=== PATIENT | female | born 1935 | race Caucasian/White ===

== ENCOUNTER 2018-02-19 06:54 | Day surgery (SDC) | payer MEDICARE ==
[~2018-02-19 06:54] MED LIST: Acetaminophen TAB* 325 MG PO PRN; Buffered Lidocaine 0.9% SYRIN* 5 ML/SYR SYRINGE INTRADERM ONE
[2018-02-19] MEDS ORDERED: Propofol* 10 MG/ML 20 ML BTL IV PUSH ONE (07:41)
[2018-02-19] MEDS ORDERED: fentaNYL* 50 MCG/ML 2 ML VIAL (100 MCG VIAL) ONE (07:41)
[2018-02-19] MEDS ORDERED: Lidocaine 2% PF * 5 ML VIAL ONE (07:41)
[2018-02-19 08:55] VITALS: BP 175/89
--- NOTE | 2018-02-19 09:48 | OP ---
DATE OF OPERATION: 02/19/2018. DATE OF : 1935. SURGEON: Noel Haywood M.D. PREOPERATIVE DIAGNOSIS: Cataract left eye. POSTOPERATIVE DIAGNOSIS: Cataract left eye. OPERATIVE PROCEDURE: Extracapsular cataract extraction with intraocular lens implant left eye. PROCEDURE: The patient was brought to the operating room after being given 1/2% Alcaine with epineph rine drops in the preoperative area. The eye was prepped and draped in the usual sterile fashion. S terile drape and eyelid speculum were placed. Again, topical 1/2% Alcaine with epinephrine was given . A paracentesis incision was made at the 3 o'clock position with the No.75 blade. Clear cornea inc ision 2.2 x 2.2-mm was created at the 6 o'clock position starting at the anterior limbus using the 2. 2-mm keratome. The anterior chamber was irrigated with 0.4 mL of 1% non-preservative intracameral li docaine and filled with DisCoVisc. A capsulorrhexis was completed using the cystotome and the Utrata forceps. Hydrodissection was performed with balanced salt solution. The lens nucleus was removed wi th the Phacoemulsification handpiece without incident. Cortex was removed with the irrigation-aspira tion handpiece. The capsular bag was re-inflated using DisCoVisc and an SN60WF 20.5 implant was inse rted with the shooter. The irrigation-aspiration handpiece was used to remove all residual DisCoVisc . The eye was refilled with balanced salt solution and the wound checked and found to be watertight. Topical Maxitrol drops were given. [id number] #: [id number]
[2018-02-19] MEDS ORDERED: acetaZOLAMIDE TAB* 250 MG ONE (10:47)
[2018-02-19] MEDS ORDERED: Proparacaine 0.5% OPHTH.SOL* 15 ML BTL ONE (10:47)
[2018-02-19] MEDS ORDERED: Lidocaine 2% EPI 1:200000 MPF*10-20 ML VIAL ONE (10:47)
[2018-02-19] MEDS ORDERED: Cyclopentolate 1% OPTH.SOL* 2 ML BTL ONE (10:47)
[2018-02-19] MEDS ORDERED: Lidocaine 1%* 5 ML VIAL ONE (10:47)
[2018-02-19] MEDS ORDERED: Ketorolac 0.5% OPHTH (NF) 0.5 % 5 ML BTL ONE (10:47)
[2018-02-19] MEDS ORDERED: Neomycin/Polymy/Dex OPTH.SUSP* MAXITROL 0.1% 5 ML ONE (10:47)
[2018-02-19] MEDS ORDERED: Povidone Iodine 5% OPTH* 30 ML BTL ONE (10:47)
[2018-02-19] MEDS ORDERED: Phenylephrine 2.5% OPTH.SOL* 2 ML BTL ONE (10:47)
== END 2018-02-19 09:15 | disposition home or self-care (01) ==
LOC: OREAST 06:54
PROVIDERS: ATTEND Specialist
DX: H25.812 Combined forms of age-related cataract, left eye (principal); H43.813 Vitreous degeneration, bilateral; E11.9 Type 2 diabetes mellitus without complications; Z79.84 Long term (current) use of oral hypoglycemic drugs; I10 Essential (primary) hypertension; F41.8 Other specified anxiety disorders; M19.90 Unspecified osteoarthritis, unspecified site
CPT/HCPCS: A9270-GY; J2704; J3010; V2632

== ENCOUNTER → 2018-02-26 06:50 | Day surgery (SDC) | payer MEDICARE ==
[~2018-02-26 06:50] MED LIST changes: +Cyclopentolate 1% OPTH.SOL* 2 ML BTL ONE; +Ketorolac 0.5% OPHTH (NF) 0.5 % 5 ML BTL ONE; +Lidocaine 1%* 5 ML VIAL ONE; +Lidocaine 2% EPI 1:200000 MPF*10-20 ML VIAL ONE; +Midazolam* 1 MG/ML 2 ML VIAL (2 MG) ONE; +Neomycin/Polymy/Dex OPTH.SUSP* MAXITROL 0.1% 5 ML ONE; +Phenylephrine 2.5% OPTH.SOL* 2 ML BTL ONE; +Povidone Iodine 5% OPTH* 30 ML BTL ONE; +Proparacaine 0.5% OPHTH.SOL* 15 ML BTL ONE; +acetaZOLAMIDE TAB* 250 MG ONE
[2018-02-26 09:08] VITALS: BP 155/75
--- NOTE | 2018-02-26 10:19 | OP ---
DATE OF OPERATION: 02/26/2018. DATE OF : 1935. SURGEON: Noel Haywood M.D. PREOPERATIVE DIAGNOSIS: Cataract right eye. POSTOPERATIVE DIAGNOSIS: Cataract right eye. OPERATIVE PROCEDURE: Extracapsular cataract extraction with intraocular lens implant right eye. PROCEDURE: The patient was brought to the operating room after being given 1/2% Alcaine with epineph rine drops in the preoperative area. The eye was prepped and draped in the usual sterile fashion. S terile drape and eyelid speculum were placed. Again, topical 1/2% Alcaine with epinephrine was given . A paracentesis incision was made at the 9 o'clock position with the No.75 blade. Clear cornea inc ision 2.2 x 2.2-mm was created at the 12 o'clock position starting at the anterior limbus using the 2 .2-mm keratome. The anterior chamber was irrigated with 0.4 mL of 1% non-preservative intracameral l idocaine and filled with DisCoVisc. A capsulorrhexis was completed using the cystotome and the Utrat a forceps. Hydrodissection was performed with balanced salt solution. The lens nucleus was removed w ith the Phacoemulsification handpiece without incident. Cortex was removed with the irrigation-aspir ation handpiece. The capsular bag was re-inflated using DisCoVisc and an SN60WF 20.5 implant was ins erted with the shooter. The irrigation-aspiration handpiece was used to remove all residual DisCoVis c. The eye was refilled with balanced salt solution and the wound checked and found to be watertight . Topical Maxitrol drops were given. [id number]/[facility] #: [id number]
== END | disposition home or self-care (01) ==
LOC: OREAST 06:50
PROVIDERS: ATTEND Specialist
DX: H25.811 Combined forms of age-related cataract, right eye (principal); H43.813 Vitreous degeneration, bilateral; E11.9 Type 2 diabetes mellitus without complications; Z79.84 Long term (current) use of oral hypoglycemic drugs; I10 Essential (primary) hypertension; F41.8 Other specified anxiety disorders; M19.90 Unspecified osteoarthritis, unspecified site
CPT/HCPCS: A9270-GY; J2250; V2632

== ENCOUNTER 2023-06-25 10:31 | Observation (INO) ==
[2023-06-25 12:07] LABS: Urine Appearance Clear; Urine Bilirubin Negative (Negative); Urine Blood 2+ (Negative); Urine Color Light-Yellow; Urine Glucose 3+ (>=300 mg/dL) (Negative); Urine Ketones Negative (Negative); Urine Nitrite Negative (Negative); Urine Protein 3+ (>=300 mg/dL) (Negative); Urine Specific Gravity 1.014 (1.002-1.030); Urine Urobilinogen Negative (Negative)
[2023-06-25 12:08] LABS: ABS Basophils 0.1 10^3/uL (0.0-0.1); ABS Eosinophils 0.2 10^3/uL (0.0-0.5); ABS Lymphocytes 1.8 10^3/uL (1.0-4.8); ABS Monocytes 0.5 10^3/uL (0.0-0.9); ABS Neutrophils 5.2 10^3/uL (1.5-7.6); ABS Nucleated RBC 0.01 10^3/ul; Eosinophil % 2.4 %; Hematocrit 42.1 % (35-45); Hemoglobin 14.4 g/dL (11.5-14.3); Lymphocyte % 23.7 %; Mean Corpuscular Hemoglobin 28.8 pg (27-33); Mean Corpuscular Hgb Conc 34.3 g/dL (31-36); Mean Platelet Volume 7.3 fL (7.5-11.2); Nucleated Red Blood Cells % 0.2 %/100WBC (0.0-0.8); Platelet Count 318 10^3/uL (150-450); Red Blood Count 5.01 10^6/uL (3.63-4.92); Red Cell Distribution Width 14.1 % (12-17); White Blood Count 7.7 10^3/uL (3.8-11.8)
[2023-06-25 12:18] LABS: Urine Bacteria 1+ /HPF (Absent); Urine Red Blood Cell 3+(>10/hpf) /HPF (0-Trace); Urine Squamous Epithelial Cell Present /HPF (Absent); Urine White Blood Cell 1+(6-10/hpf) /HPF (0-Trace)
[2023-06-25 12:30] LABS: ALT 22 U/L (7-52); Albumin 4.1 g/dL (3.2-5.2); Albumin/Globulin Ratio 1.3 (1-3); Alcohol, S < 13 mg/dL (<13); Alkaline Phosphatase 65 U/L (35-149); Anion Gap 11 mmol/L (2-16); Blood Urea Nitrogen 34 mg/dL (6-24); CO2 Carbon Dioxide 22 mmol/L (22-32); Calcium 9.3 mg/dL (8.6-10.3); Chloride 106 mmol/L (101-111); Creatinine, Serum 2.95 mg/dL (0.51-0.95); Globulin 3.1 g/dL (2-4); Glucose 161 mg/dL (70-100); Sodium 139 mmol/L (135-145); Total Bilirubin 0.5 mg/dL (0.2-1.0); Total Protein 7.2 g/dL (6.4-8.9); eGFR CKD-EPI 14.9 (>60)
[2023-06-25 12:41] LABS: TSH Ultra Thyroid Stim Horm 9.67 mcIU/mL (0.34-5.60)
[2023-06-25 14:13] LABS: Free T4 1.05 ng/dL (0.61-1.12)
[2023-06-25 15:31] LABS: Potassium, Whole Blood 2.3 mmol/L (3.4-4.5)
[2023-06-25] MEDS: cefTRIAXone 1 gm/50 mL D5W 1 GM/50 ML BAG IV SCH (15:34)
[2023-06-25] MEDS: Labetalol IV 5 MG/ML 20 ml VIAL IV PUSH ONE ×2 (16:17→22:18)
[2023-06-25] MEDS: Lactated Ringers 1000 ml BAG 1,000 ML IV ONE ×2 (16:48→20:45)
[2023-06-25 16:52] LABS: Potassium 4.3 mmol/L (3.5-5.0)
[2023-06-25] MEDS: Potassium Chlor 20 meq TAB.ER PO ONE (16:57)
[2023-06-25] MEDS: KCL 10 MEQ/50 ML IVPREMIX 10 MEQ/50 ML BAG IV SCH (16:57)
[2023-06-25] MEDS ORDERED: Dextrose 50% Syringe 50 ml 25 GM/50 ML SYRINGE IV PUSH PRN (18:10)
[2023-06-25 18:11] LABS: Magnesium 1.9 mg/dL (1.9-2.7)
[2023-06-25] MEDS: hydrALAZINE 20 mg/ml 1 ML Vial IV IV SLOW PU PRN (18:57)
[2023-06-25 20:02] LABS: Urine Benzodiazepine Screen None Detected (None Detect); Urine Cannabinoids Screen None Detected (None Detect); Urine Opiates Screen None Detected (None Detect)
[2023-06-25] MEDS: Cyanocobalamin INJ 1,000 MCG/ML VIAL 1 ML VIAL IM ONE (20:05)
[2023-06-25] MEDS: Enoxaparin 30 MG/0.3 ML SYR SUBCUT SCH (20:42)
[2023-06-26] MEDS: hydrALAZINE 20 mg/ml 1 ML Vial IV IV SLOW PU PRN (00:46)
[2023-06-26] MEDS: Magic MouthWash1-BEN/MAAL/LIDO 180 ML BTL SWISH SPIT PRN (03:29)
[2023-06-26 06:26] LABS: ABS Eosinophils 0.1 10^3/uL (0.0-0.5); ABS Lymphocytes 1.5 10^3/uL (1.0-4.8); ABS Monocytes 0.4 10^3/uL (0.0-0.9); ABS Neutrophils 5.9 10^3/uL (1.5-7.6); ABS Nucleated RBC 0.01 10^3/ul; Eosinophil % 0.8 %; Hematocrit 41.3 % (35-45); Lymphocyte % 18.6 %; Mean Corpuscular Hemoglobin 28.3 pg (27-33); Mean Corpuscular Hgb Conc 33.8 g/dL (31-36); Mean Corpuscular Volume 83.5 fL (80-97); Mean Platelet Volume 7.3 fL (7.5-11.2); Nucleated Red Blood Cells % 0.1 %/100WBC (0.0-0.8); Platelet Count 312 10^3/uL (150-450); Red Blood Count 4.95 10^6/uL (3.63-4.92); Red Cell Distribution Width 14.2 % (12-17); White Blood Count 7.8 10^3/uL (3.8-11.8)
[2023-06-26 06:44] LABS: Calcium 9.3 mg/dL (8.6-10.3); Creatinine, Serum 2.52 mg/dL (0.51-0.95); Magnesium 1.8 mg/dL (1.9-2.7)
[2023-06-26] MEDS: Lactated Ringers 1000 ml BAG 1,000 ML IV SCH (10:53)
[2023-06-26] MEDS: Magnesium Sulfate 2 gm BAG 2 GM/50 ML BAG IVPB ONE (13:16)
[2023-06-26] MEDS: Labetalol IV 5 MG/ML 20 ml VIAL IV PUSH PRN (18:17)
[2023-06-27 07:30] LABS: ABS Eosinophils 0.1 10^3/uL (0.0-0.5); ABS Lymphocytes 2.4 10^3/uL (1.0-4.8); ABS Monocytes 0.8 10^3/uL (0.0-0.9); ABS Neutrophils 5.2 10^3/uL (1.5-7.6); Eosinophil % 1.4 %; Hematocrit 37.1 % (35-45); Hemoglobin 12.6 g/dL (11.5-14.3); Lymphocyte % 28.4 %; Mean Corpuscular Hemoglobin 28.6 pg (27-33); Mean Corpuscular Volume 84.3 fL (80-97); Mean Platelet Volume 7.1 fL (7.5-11.2); Platelet Count 273 10^3/uL (150-450); Red Blood Count 4.41 10^6/uL (3.63-4.92); Red Cell Distribution Width 14.1 % (12-17); White Blood Count 8.6 10^3/uL (3.8-11.8)
[2023-06-27 07:47] LABS: Calcium 8.6 mg/dL (8.6-10.3); Creatinine, Serum 2.63 mg/dL (0.51-0.95); Magnesium 2.4 mg/dL (1.9-2.7); Potassium 3.9 mmol/L (3.5-5.0); eGFR CKD-EPI 17.1 (>60)
[2023-06-27] MEDS: Aspirin EC 81 mg TAB.EC (enteric coated) PO SCH (11:01)
[2023-06-27] MEDS: Lactated Ringers 1000 ml BAG 1,000 ML IV ONE (11:05)
[2023-06-27] MEDS: Lactated Ringers 1000 ml BAG 1,000 ML IV SCH (12:06)
[2023-06-28 09:23] LABS: Calcium 8.4 mg/dL (8.6-10.3); Creatinine, Serum 2.02 mg/dL (0.51-0.95); Potassium 3.9 mmol/L (3.5-5.0); eGFR CKD-EPI 23.5 (>60)
[2023-06-28 09:57] VITALS: BP 168/76
== END 2023-06-28 13:00 | disposition home or self-care (01) ==
LOC: EDHOLD 10:31 → ED 10:31 → SUATTDRO 16:56 → MEDTELE 17:42
PROVIDERS: ADMIT Internal Medicine; ATTEND Student in an Organized Health Care Education/Training Program

== ENCOUNTER 2024-01-08 13:57 | Observation (INO) ==
[2024-01-08] MEDS: NS 0.9% 500 ml BAG 500 ML IV ONE (15:38)
[2024-01-08 15:49] LABS: ABS Basophils 0.1 10^3/uL (0.0-0.1); ABS Eosinophils 0.2 10^3/uL (0.0-0.5); ABS Lymphocytes 1.5 10^3/uL (1.0-4.8); ABS Monocytes 0.6 10^3/uL (0.0-0.9); ABS Neutrophils 7.1 10^3/uL (1.5-7.6); Eosinophil % 1.9 %; Hematocrit 38.9 % (35-45); Hemoglobin 12.9 g/dL (11.5-14.3); Lymphocyte % 15.7 %; Mean Corpuscular Hemoglobin 27.8 pg (27-33); Mean Corpuscular Volume 84.1 fL (80-97); Mean Platelet Volume 7.4 fL (7.5-11.2); Platelet Count 321 10^3/uL (150-450); Red Blood Count 4.63 10^6/uL (3.63-4.92); Red Cell Distribution Width 15.4 % (12-17); White Blood Count 9.5 10^3/uL (3.8-11.8)
[2024-01-08 16:35] LABS: Albumin 3.7 g/dL (3.2-5.2); Albumin/Globulin Ratio 1.1 (1-3); Calcium 9.2 mg/dL (8.6-10.3); Creatinine, Serum 3.28 mg/dL (0.51-0.95); Globulin 3.5 g/dL (2-4); Potassium 4.2 mmol/L (3.5-5.0); Total Bilirubin 0.6 mg/dL (0.2-1.0); Total Protein 7.2 g/dL (6.4-8.9); eGFR CKD-EPI 13.1 (>60)
[2024-01-08] MEDS: Morphine 2 MG/ML SYRINGE IV ONE (16:45)
[2024-01-08 16:50] LABS: TSH Ultra Thyroid Stim Horm 3.64 mcIU/mL (0.34-5.60)
[2024-01-08 18:07] LABS: Urine Appearance Turbid; Urine Bilirubin Negative (Negative); Urine Blood 3+ (Negative); Urine Color Light-Yellow; Urine Glucose Negative (Negative); Urine Ketones Negative (Negative); Urine Nitrite Negative (Negative); Urine Protein 1+ (>=30 mg/dL) (Negative); Urine Specific Gravity 1.007 (1.002-1.030); Urine Urobilinogen Negative (Negative)
[2024-01-08 18:37] LABS: Urine Bacteria 3+ /HPF (Absent); Urine Red Blood Cell 3+(>10/hpf) /HPF (0-Trace); Urine Squamous Epithelial Cell Present /HPF (Absent); Urine White Blood Cell 3+(>20/hpf) /HPF (0-Trace)
[2024-01-08] MEDS: cefTRIAXone 1 gm/50 mL D5W 1 GM/50 ML BAG IV ONE (19:01)
[2024-01-08] MEDS: Piperacillin/Tazobac 3.375 BAG 3.375 GM/100 ML BAG IV ONE (22:46)
[2024-01-09] MEDS: Lactated Ringers 1000 ml BAG 500 ML IV ONE (00:33)
[2024-01-09] MEDS ORDERED: Dextrose 50% Syringe 50 ml 25 GM/50 ML SYRINGE IV PUSH PRN (00:36)
[2024-01-09] MEDS ORDERED: Zosyn per Pharmacy NOTE FOLLOW UP SCH (01:00)
[2024-01-09] MEDS: Heparin 5000 UNITS/ML 1 mL VIAL SUBCUT SCH ×2 (01:43→01:44)
[2024-01-09] MEDS: Lactated Ringers 1000 ml BAG 1,000 ML IV ONE (01:44)
[2024-01-09] MEDS: NS 0.9% 1000 ml BAG 1,000 ML IV ONE (03:20)
[2024-01-09] MEDS: NS 0.9% 1000 ml BAG 1,000 ML IV SCH ×2 (04:27→13:24)
[2024-01-09 07:01] LABS: ABS Eosinophils 0.3 10^3/uL (0.0-0.5); ABS Lymphocytes 1.2 10^3/uL (1.0-4.8); ABS Monocytes 0.5 10^3/uL (0.0-0.9); ABS Neutrophils 6.9 10^3/uL (1.5-7.6); ABS Nucleated RBC 0.01 10^3/ul; Eosinophil % 3.8 %; Hematocrit 35.8 % (35-45); Hemoglobin 12.3 g/dL (11.5-14.3); Lymphocyte % 13.4 %; Mean Corpuscular Hemoglobin 28.8 pg (27-33); Mean Corpuscular Hgb Conc 34.3 g/dL (31-36); Mean Platelet Volume 7.2 fL (7.5-11.2); Nucleated Red Blood Cells % 0.1 %/100WBC (0.0-0.8); Platelet Count 323 10^3/uL (150-450); Red Blood Count 4.26 10^6/uL (3.63-4.92)
[2024-01-09 07:37] LABS: Albumin 3.5 g/dL (3.2-5.2); Albumin/Globulin Ratio 1.1 (1-3); Calcium 8.5 mg/dL (8.6-10.3); Creatinine, Serum 2.93 mg/dL (0.51-0.95); Globulin 3.2 g/dL (2-4); Potassium 4.1 mmol/L (3.5-5.0); Total Bilirubin 0.5 mg/dL (0.2-1.0); Total Protein 6.7 g/dL (6.4-8.9)
[2024-01-09] MEDS ORDERED: ZOSYN 3.375 GM Q12H per EXTENDED INFUSION IV SCH (12:30)
[2024-01-09] MEDS: ZOSYN 3.375 GM Q12H per EXTENDED INFUSION IV SCH ×2 (12:39→13:16)
[2024-01-09] MEDS: Lactated Ringers 1000 ml BAG 1,000 ML IV SCH (13:54)
[2024-01-09] MEDS: Lidocaine PATCH 5% PATCH TRANSDERM ONE (16:17)
[2024-01-09] MEDS ORDERED: Bismuth Subsalicylate (BTL) 525 MG/30 ML (BULK BTL) PO PRN ×2 (17:28→17:43)
[2024-01-09] MEDS: Pantoprazole VIAL 40 MG VIAL IV SCH (18:02)
[2024-01-09 19:21] LABS: High Sensitivity Troponin 1 Hr 8 pg/mL (<15)
[2024-01-10 06:14] LABS: Hematocrit 32.9 % (35-45); Hemoglobin 11.3 g/dL (11.5-14.3); Mean Corpuscular Hemoglobin 28.7 pg (27-33); Mean Corpuscular Hgb Conc 34.3 g/dL (31-36); Mean Corpuscular Volume 83.8 fL (80-97); Mean Platelet Volume 7.1 fL (7.5-11.2); Platelet Count 309 10^3/uL (150-450); Red Blood Count 3.92 10^6/uL (3.63-4.92); White Blood Count 5.4 10^3/uL (3.8-11.8)
[2024-01-10 06:28] LABS: Calcium 8.5 mg/dL (8.6-10.3); Creatinine, Serum 2.64 mg/dL (0.51-0.95); Magnesium 1.9 mg/dL (1.9-2.7); Potassium 4.1 mmol/L (3.5-5.0)
[2024-01-10 14:25] VITALS: BP 165/78
== END 2024-01-10 15:45 | disposition home or self-care (01) ==
LOC: EDHOLD 13:57 → ED 13:57 → SUATTDRO 23:12 → MED 01-09 01:29
PROVIDERS: ADMIT Internal Medicine; ATTEND Hospitalist